=== PATIENT | female | born 1990 | race Caucasian/White ===

== ENCOUNTER → 2021-05-29 | Outpatient (CLI) | payer OTHER ==
--- NOTE | 2021-05-29 10:25 | REP ---
INDICATION: UNCONTROLLED HTN COMPARISON: None TECHNIQUE: Real time sky scale ultrasound examination using curved array transducer followed by color Doppler evaluation of the renal vasculature. FINDINGS: The bilateral kidneys are normal in contour, size, echogenicity, and reniform shape without hydronephrosis, nephrolithiasis, cystic or renal mass lesion. Right kidney measures 13.5 x 4.9 x 4.9 cm. Left kidney measures 12.8 x 5.4 x 4.5 cm. Bladder is normal and bilateral ureteral jets are identified. Color Doppler evaluation. Peak aortic velocity: 100.6 centimeters/second RIGHT KIDNEY Renal arterial velocity: 113.8 centimeters/second Renal-aortic ratio: 1.1 Intrarenal resistive indices: 0.45-0.52 Intrarenal acceleration times: 0.025-0.050 LEFT KIDNEY Renal arterial velocity: 111.2 centimeters/second Renal-aortic ratio: 1.1 Intrarenal resistive indices: 0.40-0.50 Intrarenal acceleration times: 0.033-0.044 IMPRESSION: 1. Kidneys appear normal. 2. Doppler interegation demonstrates normal renal aortic ratios without definite evidence for stenosis. However, left renal wave patterns demonstrate a mild tardus parvus contour raising the possibility of subtle occult stenosis. Consider MRA of the renal arteries for more definitive evaluation if necessary. <Electronically signed by Hank Vega > 05/29/21 [id number]
== END ==
LOC: M RAD 09:13
PROVIDERS: ATTEND Physician Assistant
DX: I10 Essential (primary) hypertension (principal)

== ENCOUNTER → 2021-09-04 | Outpatient (CLI) | payer OTHER ==
[2021-09-04 13:28] LABS: ALBUMIN 4.1 GM/DL (3.2-5.2); BLOOD UREA NITROGEN 12 MG/DL (7-18); CALCIUM LEVEL 10.3 MG/DL (8.5-10.1); CARBON DIOXIDE LEVEL 29 MEQ/L (21-32); CHLORIDE LEVEL 103 MEQ/L (98-107); CREATININE FOR GFR 0.66 MG/DL (0.55-1.30); GLOMERULAR FILTRATION RATE > 60.0 (>60); GLUCOSE, FASTING 101 MG/DL (70-100); PHOSPHORUS LEVEL 2.7 MG/DL (2.5-4.9); POTASSIUM SERUM 3.6 MEQ/L (3.5-5.1); SODIUM LEVEL 139 MEQ/L (136-145)
[2021-09-04 13:48] LABS: CREATININE, URINE 37.6 MG/DL; MALB URINE SIEMENS < 5.0 MG/L; MAU/CREAT RATIO 13.2 MCG/MG (0.0-30.0)
[2021-09-13 15:09] LABS: NORMETANEPHRINE PLASMA 102.1 pg/mL (0.0-210.1)
== END ==
LOC: M LAB 11:22
PROVIDERS: ATTEND Internal Medicine Cardiovascular Disease
DX: I10 Essential (primary) hypertension (principal)

== ENCOUNTER → 2021-10-30 | Outpatient (REF) | payer OTHER ==
[2021-10-30 13:16] LABS: APPEARANCE, URINE CLEAR (CLEAR); BACTERIA, URINE AUTO NEGATIVE (NEGATIVE); BILIRUBIN, URINE AUTO NEGATIVE (NEGATIVE); BLOOD, URINE BLOOD NEGATIVE (NEGATIVE); COLOR, URINE STRAW (YELLOW); GLUCOSE, URINE (UA) AUTO NEGATIVE (NEGATIVE); KETONE, URINE AUTO NEGATIVE (NEGATIVE); LEUKOCYTE ESTERASE, URINE AUTO NEGATIVE (NEGATIVE); NITRITE, URINE AUTO NEGATIVE (NEGATIVE); PROTEIN, URINE AUTO NEGATIVE (NEGATIVE); RBC, URINE AUTO 0 /HPF (0-3); SPECIFIC GRAVITY URINE AUTO 1.008 (1.002-1.035); SQUAMOUS EPITHELIAL CELL UR AU 1 /HPF (0-6); UROBILINOGEN, URINE AUTO 0.2 mg/dL (0.0-2.0); WBC, URINE AUTO 0 /HPF (0-3)
== END ==
LOC: M SMT 12:56
PROVIDERS: ATTEND Physician Assistant
DX: R31.21 Asymptomatic microscopic hematuria (principal)